=== PATIENT | male | born 1980 | race Caucasian/White ===

== ENCOUNTER 2020-11-22 08:40 | Day surgery (SDC) | payer MEDICAID ==
[~2020-11-22] VITALS: Ht 170.2 cm; Wt 68.3 kg
[~2020-11-22 08:40] MED LIST: ACET-812 PO; BUPIVAcaine/PF 2.5mg/ml (0.25%) 10ml vial ONE; CITA20TA27 PO; IBUP-1984 PO; cefazolin/dext.iso 2gm/100ml IV ONE; famotidine 20mg tablet PO ONE; ringers solution, lacted 1,000 ML IV SCH
[2020-11-22 09:30] VITALS: BP 101/73
[2020-11-22] MEDS ORDERED: LIDOcaine 0.5% (5mg/ml) 50ml vial ONE (10:01)
[2020-11-22] MEDS ORDERED: fentaNYL/PF 50MCG/1 ML 2ML syringe ONE ×2 (10:40→12:05)
[2020-11-22] MEDS ORDERED: midazolam 1 mg/ML 2ml injection ONE ×2 (10:40→11:37)
[2020-11-22 11:04] LABS: EOSINOPHILS # (AUTO) 0.2 X10'3 (0-0.9); MEAN CORPUSCULAR HEMOGLOBIN 33.1 PG (27.0-31.0); PRE OP PLATELET COUNT 292 X10'3 (140-440)
[2020-11-22 11:06] LABS: BASOPHILS # (AUTO) 0.1 X10'3 (0-0.2); BASOPHILS % (AUTO) 1.2 % (0-1); EOSINOPHILS % (AUTO) 2.3 % (0-6); LYMPHOCYTES # (AUTO) 2.1 X10'3 (1.1-4.8); LYMPHOCYTES % (AUTO) 28.2 % (21-51); MEAN CORPUSCULAR HGB CONC 34.3 g/dL (33.0-36.5); MEAN CORPUSCULAR VOLUME 96.4 FL (78-98); MEAN PLATELET VOLUME 8.7 FL (7.4-10.4); MONOCYTES # (AUTO) 0.6 X10'3 (0-0.9); MONOCYTES % (AUTO) 7.7 % (2-12); NEUTROPHILS # (AUTO) 4.5 X10'3 (1.8-7.7); NEUTROPHILS % (AUTO) 60.6 % (42-75); PRE OP HEMATOCRIT 45.5 % (42.0-52.0); PRE OP HEMOGLOBIN 15.6 g/dL (14.0-17.9); RED BLOOD COUNT 4.72 X10'6 (4.70-6.10); RED CELL DISTRIBUTION WIDTH 13.5 % (11.5-14.5)
[2020-11-22 11:13] LABS: ANION GAP 9 (8-16); BLOOD UREA NITROGEN 17 MG/DL (7-18); BUN/CREATININE RATIO 21.3 (5.4-32.0); CALCIUM 9.1 MG/DL (8.5-10.1); CHLORIDE 108 MMOL/L (99-107); GLUCOSE 95 MG/DL (70-104); POTASSIUM 4.4 MMOL/L (3.5-5.1); SODIUM 141 MMOL/L (135-145); TOTAL CARBON DIOXIDE 23.9 MMOL/L (24-32); eGFR > 90 ML/MIN
[2020-11-22 12:12] VITALS: BP 114/83
[2020-11-22] MEDS ORDERED: diphenhydrAMINE 50 mg/ml inj ONE (12:12)
--- NOTE | 2020-11-22 12:12 | NUR ---
Received from OR via [facility], accompanied by Anesthesiologist DR DAVEY and report given by Anesthesiologist. PT AWAKE, DENIES PAIN, LEFT INDEX FINGER W/SPLINT AND NGHIA JEAN COVERING CDI. Addendum: 11/22/20 at 1242 by Coretta Rodriguez RN Amended: Links added.
[2020-11-22 12:22] VITALS: BP 113/72
[2020-11-22 12:32] VITALS: BP 125/75
[2020-11-22 12:42] VITALS: BP 121/78
[2020-11-22 12:52] VITALS: BP 124/79
--- NOTE | 2020-11-22 13:02 | NUR ---
PT UP AND ABLE TO AMBULATE SAFELY, VOIDED. D/C INSTRUCTIONS GIVEN AND GONE OVER W/PT WHO VERBALIZED UNDERSTANDING. PT D/CD TO HOME VIA W/C TO PRIVATE VEHICLE W/O INCIDENT. Addendum: 11/22/20 at 1308 by Coretta Rodriguez RN Amended: Links added.
== END 2020-11-22 13:02 | disposition home or self-care (01) ==
LOC: PAS 08:40
PROVIDERS: ATTEND Orthopaedic Surgery Hand Surgery
DX: S68.111A Complete traumatic metacarpophalangeal amputation of left index finger, initial encounter (principal); F17.210 Nicotine dependence, cigarettes, uncomplicated; Z98.890 Other specified postprocedural states; Z72.89 Other problems related to lifestyle; Z79.899 Other long term (current) drug therapy; Z20.822 Contact with and (suspected) exposure to COVID-19; Z80.9 Family history of malignant neoplasm, unspecified; W31.2XXA Contact with powered woodworking and forming machines, initial encounter; Y93.89 Activity, other specified; Y92.89 Other specified places as the place of occurrence of the external cause; Y99.8 Other external cause status
CPT/HCPCS: 26951; 36415; 80048; 82948; 85025; 87426; A6222; J1200; J2001; J2250; J3010; J3490; J7120; A4618; A6446; A6449